=== PATIENT | male | born 1950 | race Hispanic/Latino ===

== ENCOUNTER 2020-07-08 11:38 | Outpatient (CLI) | payer MEDICARE | END 2020-07-08 11:39 | disposition home or self-care (01) | LOC: NAV RAD 11:38 | PROVIDERS: ATTEND Nurse Practitioner Adult Health | DX: M25.532 Pain in left wrist (principal); S59.202A Unspecified physeal fracture of lower end of radius, left arm, initial encounter for closed fracture; W18.30XA Fall on same level, unspecified, initial encounter ==

== ENCOUNTER 2021-04-30 10:26 | Outpatient (CLI) | payer MEDICARE | END 2021-04-30 10:27 | disposition home or self-care (01) | LOC: NAV RAD 10:26 | PROVIDERS: ATTEND Family Medicine | DX: M16.11 Unilateral primary osteoarthritis, right hip (principal) ==

== ENCOUNTER 2022-03-04 10:04 | Emergency (ER) | payer OTHER ==
[2022-03-04] MEDS ORDERED: Aspirin Chewable 81 MG TAB ONE (10:38)
[2022-03-04] MEDS ORDERED: Nitroglycerin 0.4 MG TAB (25 Tab Bottle) ONE (10:38)
[2022-03-04 10:52] LABS: White Blood Cell (WBC) Count 7.4 10x3/uL (4.8-10.8)
[2022-03-04 10:53] LABS: Hemoglobin 15.3 g/dL (14.0-18.0); Red Blood Cell (RBC) Count 4.78 mill/uL (4.70-6.10)
[2022-03-04 10:54] LABS: %Eosinophils 1.8 % (0.0-10.0); %Monocytes 4.8 % (0.0-10.0); %Neutrophils 68.5 % (42.0-75.0); Mean Corpuscular HGB CONC 33.4 g/dL (32.0-36.0); Mean Platelet Volume 8.7 fL (7.4-10.4); Platelet Count 141 10x3/uL (130-400); RBC Distribution Width 12.1 % (11.5-14.5)
[2022-03-04 10:55] LABS: #Basophils 0.1 thou/uL (0.0-0.2); #Eosinphils 0.1 thou/uL (0.0-0.7); #Lymphocytes 1.8 thou/uL (1.20-3.40); #Monocytes 0.3 thou/uL (0.11-0.59); %Basophils 1.3 % (0.0-1.0)
[2022-03-04 11:05] LABS: ALT (SGPT) 11 U/L (8-55); AST (SGOT) 18 U/L (5-34); Alkaline Phosphatase 72 U/L (40-110); Anion Gap 16 mmol/L (10-20); BUN (Urea Nitrogen) 9 mg/dL (8.4-25.7); Bilirubin, Total 1.2 mg/dL (0.2-1.2); Calc. Creatinine Clearance 0 mL/min (70-130); Calcium 8.8 mg/dL (7.8-10.44); Carbon Dioxide 22 mmol/L (23-31); Chloride 106 mmol/L (98-107); Estimated GFR 94; Globulin 3.1 g/dL (2.4-3.5); Glucose 127 mg/dL (80-115); Potassium 3.2 mmol/L (3.5-5.1); Protein, Total 7.1 g/dL (5.8-8.1); Sodium 141 mmol/L (136-145)
[2022-03-04] MEDS ORDERED: Fentanyl 100 MCG/2 ML VIAL ONE (11:18)
[2022-03-04] MEDS ORDERED: Enoxaparin Sodium 80 MG/0.8 ML SYRINGE ONE (11:33)
[2022-03-04 12:02] LABS: SARS-CoV-2 NAA Rapid Test Not Detected (NotDetected)
== END 2022-03-04 12:03 | disposition short-term general hospital (02) ==
LOC: NAV ERS 10:04
DX: I21.4 Non-ST elevation (NSTEMI) myocardial infarction (principal); Z20.822 Contact with and (suspected) exposure to COVID-19
CPT/HCPCS: 71045; 82553; 83880; 84484; 85379; 93005; 94760; 96361; 96372; 96374; 99285; U0002; 80053; 84443; 85025; J1650; J3010